=== PATIENT | female | born 1975 | race Caucasian/White ===

== ENCOUNTER 2019-01-22 20:51 | Emergency (ER) | payer MEDICAID ==
[~2019-01-22] VITALS: Ht 167.6 cm; Wt 75.9 kg
[~2019-01-22 20:51] MED LIST: ACET-66 PO
[2019-01-22] MEDS ORDERED: KETOROLAC TROMETHAMINE 30 MG/ML VIAL IM ONE (23:15)
[2019-01-23 00:56] VITALS: BP 142/78
== END 2019-01-23 01:41 | disposition home or self-care (01) ==
LOC: EMS 20:53
DX: M54.2 Cervicalgia (principal); M25.512 Pain in left shoulder; I10 Essential (primary) hypertension; Z98.51 Tubal ligation status; Z90.710 Acquired absence of both cervix and uterus
CPT/HCPCS: 71045; 72040; 96372; 99283; J1885